=== PATIENT | male | born 1985 | race Caucasian/White ===

== ENCOUNTER 2024-06-24 09:27 | Emergency (ER) | payer OTHER, SELFPAY ==
[2024-06-24 09:29] VITALS: BP 122/67
[2024-06-24 10:02] LABS: COVID-19 Antigen Negative (Negative)
--- NOTE | 2024-06-24 11:15 | ED.GENMED ---
History of Present Illness
General
Chief Complaint: Cold/Flu/URI Symptoms
Source: patient
Time Seen by Provider: 06/24/24 11:06
History of Present Illness
History of Present Illness:
38-year-old male presenting the emergency department for evaluation of fevers, cough, nasal congestion, headache and bodyaches ongoing since , today felt worse and had been taking [id number] medications with transient relief
but decided to come to the ER for further evaluation. No known sick contacts, recent travel or recent antibiotics. No other concerns presently.
Past History
Past History
ED Past Medical History: None
ED Past Surgical History: None
Social History
Tobacco: Non-smoker
Alcohol: None
Drug: None
Personal:
Living: with family
Employment: Employed
Review of Systems
Review of Systems
All Other Systems: ROS reviewed and negative except as documented in HPI and ROS
Phy Exam
Physical Exam
Physical Exam:
GENERAL: Alert , in no apparent distress
EYE: conjunctiva clear
Head: Normocephalic atraumatic
NECK: Supple,
ENT: mmm.
LUNGS: no acute respiratory distress
NEUROLOGICAL: Alert and oriented
SKIN: Warm and dry, skin intact.
MUSCULOSKELETAL: well perfused.
PSYCH: Normal and appropriate interaction.
Scores
Heart Failure Risk
Heart Failure Risk Score: Not Applicable
Heart Score for Chest Pain Patients
STEMI patient?: Not applicable
Withdrawal Assessment of Alcohol
Withdrawal Assessment Completed?: Not applicable
Course
Orders/Labs/Results
Orders:
Orders
06/24/24 09:34
COVID-19 Antigen Urgent
Source: Nasal Swab
INF RAPID [Influenza A+B Rapid Molecular] Urgent
REHANA Source: Nasal Swab
Specimen Description:
Vital Signs
Initial and Last Documented VS:
Initial Vital Signs
Temp Pulse Resp BP Pulse Ox
99.2 F 60 18 122/67 98
06/24/24 09:29 06/24/24 09:29 06/24/24 09:29 06/24/24 09:29 06/24/24 09:29
Last Documented Vital Signs
Temp Pulse Resp BP Pulse Ox
97.6 F 80 20 136/75 99
06/24/24 11:30 06/24/24 11:30 06/24/24 11:30 06/24/24 11:30 06/24/24 11:30
MDM/Problems Addressed
Differential Diagnosis Includes:
COVID, flu, pneumonia
MDM/Problems Addressed:
38-year-old male presenting to the ER for evaluation of flulike symptoms that began this past afternoon. Symptoms persisted through the weekend and still felt ill this morning to come to the ER. In triage patient was tested for the flu
and tested positive. Patient was advised on supportive measures including continued Motrin and Tylenol, fluids and rest. Patient is otherwise stable for discharge.
*Pulse Oximetry
Patient hypoxic: no
*Critical Care Note
Total Time (30-74mins, 75-104mins- exclusive of procedures): Not Applicable
ED Attending Note
-
Portions of this chart may have been created with voice recognition software.� Occasional wrong word or��sound alike� substitutions may have occurred due to the inherent limitations of voice recognition software.
Discharge Plan
Departure
Patient Disposition: Home (Routine Discharge)
Date of Disposition: 06/24/24
Time of Disposition: 11:15
Patient with high blood pressure during this ER visit?: No
Discharge Problem:
Influenza A
Instructions: Flu in adults - Discharge instructions
Stand Alone Forms: Return to Work
Interventions
Interventions:
*Risk Screen - Suicide Last Done: 06/24/24 09:29
*General Assessment Last Done: 06/24/24 09:29
*Neglect/Abuse Screening Last Done: 06/24/24 09:29
ED- Fall Risk Assessment Last Done: 06/24/24 11:30
*ED COVID-19 Vaccine History Last Done: 06/24/24 11:30
*Nursing Disposition Last Done: 06/24/24 11:32
ED- Pulmonary Assessment Last Done: 06/24/24 11:30
Discharge Date and Time
Discharge Date/Time: 06/24/24 11:33
Print Language: IRISH
[2024-06-24 11:30] VITALS: BP 136/75; BMI 24.3
== END 2024-06-24 11:33 | disposition home or self-care (01) ==
LOC: EMR 09:27
PROVIDERS: EMERGENCY PHYSICIAN Emergency Medicine
DX: J10.1 Influenza due to other identified influenza virus with other respiratory manifestations (principal)
CPT/HCPCS: 99282; 87502; 87811